=== PATIENT | male | born 1975 | race Caucasian/White ===

== ENCOUNTER → 2016-11-22 | Outpatient (CLI) | payer OTHER, BC ==
[~2016-11-22] MED LIST: PROP80TA2 PO
--- NOTE | 2016-11-22 09:03 | DIAGNOSTIC IMAGING REPORT ---
LUMBAR SPINE 5 VIEWS HISTORY: LOWER BACK PAIN COMPARISON: 12/03/2015 FINDINGS: There is no fracture. No subluxation. Minimal degenerative intervertebral disc change such entire lumbar region. No evidence for compression deformity. IMPRESSION: Minimal degenerative disc change. No acute process. Electronically signed by: Benoit Paul M.D. 11/22/2016 9:01 AM Dictated Date/Time: 11/22/2016 8:58 AM
== END | disposition home or self-care (01) ==
LOC: C.RAD1850 08:37
PROVIDERS: ATTEND Nurse Practitioner Adult Health
DX: M54.5 Low back pain (principal)

== ENCOUNTER 2017-05-26 05:16 | Emergency (ER) | payer BC, OTHER ==
[~2017-05-26] VITALS: Ht 182.9 cm; Wt 117.7 kg
[2017-05-26 05:18] VITALS: Ht 182.9 cm; Wt 117.7 kg
[2017-05-26] MEDS ORDERED: SODIUM CHLORIDE 0.9% 500ML 500 ML IV STA (05:39)
[2017-05-26] MEDS ORDERED: PROP80TA2 PO (05:55)
[2017-05-26 06:24] LABS: BASO % 0.5 %; BASO ABS # 0.04 K/uL (0-0.2); COMPLETE YES; EOS % 3.3 %; HEMATOCRIT 43.8 % (42-52); IG% 0.8 %; LYMPH % 24.2 %; LYMPH ABS # 1.85 K/uL (1.2-3.4); MEAN CELL VOLUME 83.6 fL (80-100); MEAN CORPUSCULAR HEMOGLOBIN 30.2 pg (25-34); MEAN CORPUSCULAR HGB CONC 36.1 g/dl (32-36); MEAN PLATELET VOLUME 8.7 fL (7.4-10.4); MONO % 10.8 %; NEUT % 60.4 %; PLATELET COUNT 289 K/uL (130-400); RED BLOOD COUNT 5.24 M/uL (4.7-6.1); WHITE BLOOD COUNT 7.66 K/uL (4.8-10.8)
--- NOTE | 2017-05-26 06:30 | DIAGNOSTIC IMAGING REPORT ---
CHEST ONE VIEW PORTABLE CLINICAL HISTORY: palpitations COMPARISON STUDY: No previous studies for comparison. FINDINGS: The heart is at the upper limits of normal in size. There is no failure. There is no focal pulmonary consolidation. No pleural effusions are visualized. Chronic changes involve the distal right clavicle.[ IMPRESSION: No active disease in the chest. Electronically signed by: Jhony Tavera M.D. 05/26/2017 6:29 AM Dictated Date/Time: 05/26/2017 6:28 AM
[2017-05-26 06:38] LABS: BUN/CREATININE RATIO 16.5 (10-20); CALCIUM 9.2 mg/dl (8.5-10.1); CREATININE 0.89 mg/dl (0.60-1.40); MAGNESIUM 2.2 mg/dl (1.8-2.4); POTASSIUM 4.1 mmol/L (3.5-5.1)
[2017-05-26 06:49] LABS: THYROID STIMULATING HORMONE 0.744 uIu/ml (0.300-4.500)
[2017-05-26] MEDS ORDERED: hydrOXYzine HCL 25 MG TAB PO STA (06:53)
--- NOTE | 2017-05-26 07:17 | EMERGENCY ROOM VISIT NOTE ---
History Report prepared by Sana: Ashanti James Under the Supervision of: Dr. Erica Olivera M.D. First contact with patient: 05:21 Chief Complaint: PALPITATIONS Stated Complaint: PALPITATIONS History of Present Illness The patient is a 42 year old male who presents to the Emergency Room with complaints of an episode of palpitations starting this morning. The patient states that he has been having these episodes where he gets ringing in his ears. He states that his hands and face become hot and he gets a tingling feeling in his body. He reports that he went to his PCP who gave him a Holter monitor that found at random times his atria beat faster than his ventricles and then flip. The patient reports that he was getting ready for work this morning when he had the most intense episode he has had yet. He described it like, "I just got done running a race." He states that he called to make an appointment with a urology surgeon and is waiting for them to call back. He states he was pit on Propranolol 80 mg. He states he took it for the first time last night. The patient denies shortness of breath, pain with deep breathing, a family history of blood clots, and any recent surgery. He notes that he cut back his caffeine a week ago. Source of History: patient Onset: this morning Position: other (global) Quality: other (global) Timing: other (episode) Associated Symptoms: No SOB Note: The patient complains of ringing in his ears, his hands and face becoming hot, and his body tingling. The patient denies pain with deep breathing, a family history of blood clots, and any recent surgery Review of Systems See HPI for pertinent positives & negatives. A total of 10 systems reviewed and were otherwise negative. Past Medical & Surgical Medical Problems: (1) Headache (2) Headache (3) Injury of right elbow (4) Injury of right elbow (5) Migraine (6) No known problems (7) Right elbow pain (8) Rotator cuff tear (9) Shoulder pain (10) Shoulder pain (11) Shoulder strain Family History Patient reports no known family medical history. Social History Smoking Status: Former Smoker Smokeless Tobacco Use: Yes Alcohol Use: none Drug Use: none Marital Status: Housing Status: lives with family Occupation Status: employed Current/Historical Medications Scheduled Propranolol (Inderal), 80 MG PO DAILY Allergies Coded Allergies: No Known Allergies (Unverified , unknown, 05/26/17) Physical Exam Vital Signs Date Time Temp Pulse Resp B/P (MAP) Pulse Ox O2 Delivery O2 Flow Rate FiO2 05/26/17 07:58 36.5 67 20 135/88 96 05/26/17 07:58 36.5 67 20 96 Room Air 05/26/17 05:34 67 05/26/17 05:18 36.5 75 20 145/100 96 Room Air Physical Exam Vital signs reviewed. General: Anxious-appearing, jittery, in no significant distress. HEENT: No scleral icterus, PERRLA, neck supple. Atraumatic. Cardiovascular: Regular rate and rhythm, no extra sounds. Pulmonary: Clear to auscultation bilaterally, normal work of breathing. Abdomen: Soft, nontender, nondistended, positive bowel sounds. Musculoskeletal: Atraumatic, no peripheral edema. Neurologic: Patient awake alert and oriented x 3, full strength in all 4 extremities. Cranial nerves 2 through 12 grossly intact. Skin: Warm, dry, no rash Medical Decision & Procedures ER Provider Diagnostic Interpretation: Radiology results as stated below per my review and radiologist interpretation: CHEST ONE VIEW PORTABLE CLINICAL HISTORY: palpitations COMPARISON STUDY: No previous studies for comparison. FINDINGS: The heart is at the upper limits of normal in size. There is no failure. There is no focal pulmonary consolidation. No pleural effusions are visualized. Chronic changes involve the distal right clavicle.[ IMPRESSION: No active disease in the chest. Electronically signed by: Jhony Tavera M.D. 05/26/2017 6:29 AM Dictated Date/Time: 05/26/2017 6:28 AM Laboratory Results 05/26/17 06:05 Red Blood Count 5.24, Mean Corpuscular Volume 83.6, Mean Corpuscular Hemoglobin 30.2, Mean Corpuscular Hemoglobin Concent 36.1, Mean Platelet Volume 8.7, Neutrophils (%) (Auto) 60.4, Lymphocytes (%) (Auto) 24.2, Monocytes (%) (Auto) 10.8, Eosinophils (%) (Auto) 3.3, Basophils (%) (Auto) 0.5, Neutrophils # (Auto ) 4.63, Lymphocytes # (Auto) 1.85, Monocytes # (Auto) 0.83, Eosinophils # (Auto ) 0.25, Basophils # (Auto) 0.04 05/26/17 06:05 Test 05/26/17 06:05 05/26/17 06:14 White Blood Count 7.66 K/uL (4.8-10.8) Red Blood Count 5.24 M/uL (4.7-6.1) Hemoglobin 15.8 g/dL (14.0-18.0) Hematocrit 43.8 % (42-52) Mean Corpuscular Volume 83.6 fL (80-100) Mean Corpuscular Hemoglobin 30.2 pg (25-34) Mean Corpuscular Hemoglobin Concent 36.1 g/dl (32-36) Platelet Count 289 K/uL (130-400) Mean Platelet Volume 8.7 fL (7.4-10.4) Neutrophils (%) (Auto) 60.4 % Lymphocytes (%) (Auto) 24.2 % Monocytes (%) (Auto) 10.8 % Eosinophils (%) (Auto) 3.3 % Basophils (%) (Auto) 0.5 % Neutrophils # (Auto) 4.63 K/uL (1.4-6.5) Lymphocytes # (Auto) 1.85 K/uL (1.2-3.4) Monocytes # (Auto) 0.83 K/uL (0.11-0.59) Eosinophils # (Auto) 0.25 K/uL (0-0.5) Basophils # (Auto) 0.04 K/uL (0-0.2) RDW Standard Deviation 38.0 fL (36.4-46.3) RDW Coefficient of Variation 12.6 % (11.5-14.5) Immature Granulocyte % (Auto) 0.8 % Immature Granulocyte # (Auto) 0.06 K/uL (0.00-0.02) Anion Gap 7.0 mmol/L (3-11) Est Creatinine Clear Calc Drug Dose 143.2 ml/min Estimated GFR () 122.2 Estimated GFR (Non- 105.5 BUN/Creatinine Ratio 16.5 (10-20) Calcium Level 9.2 mg/dl (8.5-10.1) Magnesium Level 2.2 mg/dl (1.8-2.4) Total Bilirubin 0.6 mg/dl (0.2-1) Direct Bilirubin 0.2 mg/dl (0-0.2) Aspartate Amino Transf (AST/SGOT) 24 U/L (15-37) Alanine Aminotransferase (ALT/SGPT) 51 U/L (12-78) Alkaline Phosphatase 75 U/L (45-117) Total Creatine Kinase 160 U/L (39-308) Creatine Kinase MB 1.6 ng/ml (0.5-3.6) Creatine Kinase MB Ratio 1.0 (0-3.0) Total Protein 7.4 gm/dl (6.4-8.2) Albumin 4.0 gm/dl (3.4-5.0) Thyroid Stimulating Hormone (TSH) 0.744 uIu/ml (0.300-4.500) Bedside Troponin I < 0.030 ng/ml (0-0.045) Laboratory results per my review. Medications Administered Medications (Trade) Dose Ordered Sig/Pebbles Route Start Time Stop Time Status Last Admin Dose Admin Sodium Chloride 500 ml @ 999 mls/hr Q31M STAT IV 05/26/17 05:39 05/26/17 06:09 DC 05/26/17 05:39 999 MLS/HR Hydroxyzine HCl (Vistaril Tab) 25 mg NOW STAT PO 05/26/17 06:53 05/26/17 06:54 DC 05/26/17 07:15 25 MG ECG Indication: palpitations Rate (beats per minute): 70 Rhythm: normal sinus Findings: no acute ischemic change, no ectopy ED Course 0536: Past medical records reviewed. The patient was evaluated in room B10. A complete history and physical examination was performed. 0539: Ordered NSS 500 ml @ 999 mls/hr IV. 0653: Ordered Vistaril Tab 25 mg PO. 0654: Upon reevaluation, the patient appeared to have improvement of his symptoms. I discussed findings with the patient. He was given 25 mg of Vistaril for anxiety and instructed to follow up with his PCP. He verbalized agreement of the treatment plan. The patient was discharged home. Medical Decision Differential diagnosis: Etiologies such as premature contractions, electrolyte abnormality, cardiac dysrhythmia, thyroid dysfunction, pulmonary embolism, infection, gastrointestinal, as well as others were entertained. This pt was evaluated and appeared to be in no distress. IV access was obtained and lab work was drawn. Pt was placed on the bulk fluids handler. EKG was performed and reveals a NSR without ectopy of ischemia. CXR is clear to my interpretation. Lab work is generally unrevealing. Pt was given vistaril 25 mg for anxiety. He was advised to continue propanolol as prescribed and f/u this week with PCP as scheduled. He will avoid caffeine. Pt will return to the ED for worsening of symptoms or any medical concerns. Impression Primary Impression: Palpitations Scribe Attestation The scribe's documentation has been prepared under my direction and personally reviewed by me in its entirety. I confirm that the note above accurately reflects all work, treatment, procedures, and medical decision making performed by me. Departure Information Dispostion Home / Self-Care Referrals Ani Reyes, C.R.N.P. (PCP) Forms HOME CARE DOCUMENTATION FORM, IMPORTANT VISIT INFORMATION, WORK / SCHOOL INSTRUCTIONS Patient Instructions My [facility] Additional Instructions Diagnosis: Palpitations Continue propanolol as prescribed. Avoid caffiene, nicotine and alcohol. Drink plenty of fluids. Follow up with your doctor this week as scheduled. Return to the ED for worsening of symptoms or any medical concerns.
[2017-05-26 07:58] VITALS: BP 135/88; PULSE 67; TEMP 36.5; O2SAT 96
== END 2017-05-26 07:15 | disposition home or self-care (01) ==
LOC: C.EDB 05:17
DX: R00.2 Palpitations (principal); F41.9 Anxiety disorder, unspecified; Z87.828 Personal history of other (healed) physical injury and trauma; Z87.891 Personal history of nicotine dependence; Z79.899 Other long term (current) drug therapy

== ENCOUNTER → 2017-10-20 | Outpatient (CLI) | payer OTHER ==
--- NOTE | 2017-10-20 16:12 | DIAGNOSTIC IMAGING REPORT ---
R SHOULDER MIN 2 VIEWS ROUTINE CLINICAL HISTORY: PAIN IN R SHOULDER COMPARISON: 05/19/2016 DISCUSSION: No acute fractures or dislocations are visualized. Degenerative changes are present within the chromic clavicular joint. There is distal clavicular spurring similar to the preceding study. There is no evidence for soft tissue swelling. IMPRESSION: 1. No change from the prior study. 2. No acute fractures 3. Degenerative changes within the AC joint Electronically signed by: Jhony Tavera M.D. 10/20/2017 4:10 PM Dictated Date/Time: 10/20/2017 4:10 PM
== END | disposition home or self-care (01) ==
LOC: C.RAD1850 15:59
PROVIDERS: ATTEND Family Medicine
DX: M25.511 Pain in right shoulder (principal)

== ENCOUNTER → 2017-11-24 | Outpatient (CLI) | payer OTHER ==
--- NOTE | 2017-11-24 11:08 | DIAGNOSTIC IMAGING REPORT ---
ABDOMEN COMPLETE (US) HISTORY: Pain. Nausea. RUQ PAIN. COMPARISON: None. FINDINGS: Pancreas: The pancreas demonstrates a normal echotexture. Liver: Mild fatty infiltration Gallbladder: No gallbladder wall thickening. No gallstones. CBD: 4 mm Kidneys: No hydronephrosis. Spleen: Normal in size. Several echogenic nodule suggesting benign angiomyolipomas. Aorta: Normal in caliber. IVC: Patent. IMPRESSION: No significant abnormality identified within the within the abdomen. Mild fatty infiltration of liver The above report was generated using voice recognition software. It may contain grammatical, syntax or spelling errors. Electronically signed by: Benoit Paul M.D. 11/24/2017 11:07 AM Dictated Date/Time: 11/24/2017 11:06 AM
== END | disposition home or self-care (01) ==
LOC: C.ULTR 10:21
PROVIDERS: ATTEND Student in an Organized Health Care Education/Training Program
DX: R10.11 Right upper quadrant pain (principal)

== ENCOUNTER 2024-11-12 17:00 | Observation (INO) ==
--- NOTE | 2024-11-12 17:20 | Emergency Department Note ---
Impression & Plan Acute hypoxic respiratory failure, Influenza A, Hypoxia ED Provider Note NAME: DILIP COLLIER AGE: 49 SEX: M : 1975 ARRIVES VIA: Walk-In INFORMANT: Patient ED PROVIDER(S): Shawn Pruitt DO CHIEF COMPLAINT: Cough, congestion, shortness of breath HPI: Patient is a 49-year-old male who presents to the ER with history of anxiety and hypertension for upper respiratory symptoms referred in by the PCP. Patient notes that symptoms initially started on Monday with cough, congestion and shortness of breath. They have been worsening. They went to the PCPs office and they referred him in here as his blood pressure was elevated. Patient denies any belly pain, nausea, vomiting or diarrhea. No dysuria, urgency or frequency. No chest pain. No headache or change or loss of vision. No history of asthma or COPD. He has not taken his blood pressure medicines today as he normally takes it at night. ADDITIONAL HISTORY OBTAINED: Significant other present at bedside notes that they were sent over for evaluation due to the shortness of breath and that multiple coworkers are sick at work with same symptoms. Chronic Medical/Social Conditions Affecting Care: Per HPI PAST MEDICAL HISTORY:See Below PAST SURGICAL HISTORY:See Below FAMILY HISTORY:See Below SOCIAL HISTORY:See Below HOME MEDICATIONS:See Below ALLERGIES:See Below VITALS:See Below PHYSICAL EXAMINATION: GENERAL: Sitting up in bed, alert, well appearing, well nourished, no distress, non-toxic EYE EXAM: normal conjunctiva. PERRL and EOM's grossly intact. OROPHARYNX: no exudate, no erythema, lips, buccal mucosa, and tongue normal and mucous membranes are moist NECK: supple, no nuchal rigidity, no adenopathy, non-tender LUNGS: Wheezing bilaterally. Normal chest wall mechanics HEART: no murmurs, S1 normal and S2 normal ABDOMEN: abdomen soft, non-tender, normo-active bowel sounds, no masses, no rebound or guarding. UPPER EXTREMITIES: upper extremities are grossly normal. LOWER EXTREMITIES: No pitting edema. Calves are equal bilateral NEURO EXAM: Normal sensorium, cranial nerves II-XII grossly intact, normal speech, no gross weakness of arms, no gross weakness of legs. MEDICAL DECISION MAKING: Patient is a 49-year-old male who presents ER for the above-stated complaint. IV was established and blood work was obtained. He is found to be hypoxic at 88% on room air was placed on 2 L nasal cannula. Additional history obtained from [facility] who called and noted the patient has a history of anxiety and hypertension and blood pressure was 180 and his pulse ox was 92% sent him over for the shortness of breath. Labs show no significant leukocytosis or anemia. BMP along with LFTs bilirubin and lipase is unremarkable. Troponin was negative. Influenza testing was positive. Chest x-ray was clean. He was given neb treatment steroids and remained on 2 L nasal cannula throughout his stay in the ER. I discussed the case with Dr. Nettie Chen for further evaluation management treatment. Consults/Care Managements Discussions: Per MDM Triage Nursing notes reviewed. Limited review of prior medical records performed Vital Signs: reviewed and remarkable for HTN Differential diagnosis: Differential diagnoses includes but is not limited to pneumonia, bronchitis, COPD/Asthma exacerbation, pneumothorax, pulmonary embolism, congestive heart failure, acute coronary syndrome ER treatment provided: See below Diagnostics interpreted by me include EKG and cardiac monitoring as listed below: -Cardiac Monitoring: An order was placed for continuous cardiac monitoring. The monitor shows a rate of 75 with sinus rhythm. -ECG: Sinus rhythm rate 65 Normal axis No PVCs QTc 420 -Laboratory studies:Interpreted by me as stated above in MDM and shown below. Imaging studies: Xrays: As interpreted by me: Portable AP upright 1 view of the chest shows no focal infiltrate CTs show: none Procedures:none Critical Care: I have personally spent 44 minutes of critical care time in the direct management of this patient. This includes bedside care, interpretation of diagnostic studies, and testing, discussion with consultants, patient, and family members, and other required patient management activities. This 44 minutes is in excess of all separately billable procedures. Past Med/Surg History Problem List (Updated 11/12/24 @ 19:54 by Shawn Pruitt DO) Acute hypoxic respiratory failure (Acute) Hypoxia (Acute) Influenza A (Acute) Medical History (Updated 11/12/24 @ 19:54 by Shawn Pruitt DO) Anxiety Hypertension Lumbar radiculopathy Social History Smoking Status: Never smoker Preferred Language: Malay Feels Safe at Home: Yes Allergies Allergies Allergy/AdvReac Type Severity Reaction Status Date / Time No Known Allergies AdvReac Unknown unknown Verified 11/12/24 18:44 Home Meds Home Medications Medication Instructions Recorded Confirmed albuterol sulfate 90 mcg/actuation 2 puff inhalation Q6H PRN 11/12/24 11/12/24 aerosol inhaler Shortness Of Breath Or Wheezing prednisone 20 mg tablet 40 mg PO DAILY 11/12/24 11/12/24 propranolol 80 mg capsule,24 80 mg PO PM 11/12/24 11/12/24 hr,extended release Results & Data (ED) Vital Signs Vital Signs - 24 hr 11/12/24 17:07 11/12/24 17:31 11/12/24 17:45 Temperature 36.6 C Temperature Source Temporal Artery Scan Pulse Rate 74 Pulse Rate [Right Finger] 61 Pulse Rhythm [Right Finger] Regular Pulse Strength [Right Finger] Normal Respiratory Rate 20 20 Respiratory Effort / Characteristics Non-Labored Spontaneous Non-Labored Spontaneous Respiratory Depth Normal Normal Respiratory Pattern Regular Regular Blood Pressure 221/115 H Blood Pressure [Left Arm] 148/91 H Blood Pressure Mean 150 Blood Pressure Mean [Left Arm] 110 Blood Pressure Position [Left Arm] Sitting Pulse Oximetry 91 98 89 L Oxygen Delivery Method Room Air Room Air Room Air Oxygen Flow Rate Sepsis Recent Fever Within 48 Hours No Sepsis New/Unexplained Change in Mental Status N/A Sepsis Action Taken by Nursing No Action Required 11/12/24 17:47 11/12/24 18:00 11/12/24 18:48 Temperature Temperature Source Pulse Rate 60 Pulse Rate [Right Finger] 79 Pulse Rhythm [Right Finger] Regular Pulse Strength [Right Finger] Normal Respiratory Rate 22 Respiratory Effort / Characteristics Non-Labored Spontaneous Respiratory Depth Normal Respiratory Pattern Blood Pressure Blood Pressure [Left Arm] 182/85 H Blood Pressure Mean Blood Pressure Mean [Left Arm] 117 Blood Pressure Position [Left Arm] Sitting Pulse Oximetry 94 95 Oxygen Delivery Method Nasal Cannula Nasal Cannula Oxygen Flow Rate 2 2 Sepsis Recent Fever Within 48 Hours Sepsis New/Unexplained Change in Mental Status Sepsis Action Taken by Nursing 11/12/24 19:00 Temperature Temperature Source Pulse Rate Pulse Rate [Right Finger] 57 L Pulse Rhythm [Right Finger] Pulse Strength [Right Finger] Respiratory Rate 18 Respiratory Effort / Characteristics Non-Labored Spontaneous Respiratory Depth Normal Respiratory Pattern Regular Blood Pressure Blood Pressure [Left Arm] 172/99 H Blood Pressure Mean Blood Pressure Mean [Left Arm] 123 Blood Pressure Position [Left Arm] Pulse Oximetry 95 Oxygen Delivery Method Nasal Cannula Oxygen Flow Rate 2 Sepsis Recent Fever Within 48 Hours Sepsis New/Unexplained Change in Mental Status Sepsis Action Taken by Nursing Laboratory Data 11/12/24 17:18 11/12/24 17:18 Lab Results 11/12/24 Range/Units 17:18 WBC 10.48 (4.8-10.8) K/ul RBC 5.84 (4.70-6.10) M/uL Hgb 16.6 (14.0-18.0) g/dl Hct 48.8 (42.0-52.0) % MCV 83.6 (80.0-100.0) fL MCH 28.4 (25.0-34.0) pg MCHC 34.0 (32.0-36.0) g/dL RDW Std Deviation 37.4 (36.4-46.3) fL RDW Coeff of Tess 12.5 (11.5-14.5) % Plt Count 338 (130-400) K/uL MPV 8.2 L (9.4-12.4) fL Immature Gran % (Auto) 1.2 % Neut % (Auto) 75.3 % Lymph % (Auto) 13.9 % [place] % (Auto) 8.8 % Eos % (Auto) 0.4 % Baso % (Auto) 0.4 % Neut # (Auto) 7.89 H (1.40-6.50) K/uL Lymph # (Auto) 1.46 (1.20-3.40) K/uL [place] # (Auto) 0.92 H (0.11-0.59) K/uL Eos # (Auto) 0.04 (0.00-0.50) K/uL Baso # (Auto) 0.04 (0.00-0.20) K/uL Immature Gran # (Auto) 0.13 (0.01-0.20) K/uL Sodium 137 (136-145) mmol/L Potassium 4.5 (3.5-5.1) mmol/L Chloride 99 (98-107) mmol/L Carbon Dioxide 33 H (21-32) mmol/L Anion Gap 5 (3-11) BUN 14 (6-23) mg/dl Creatinine 0.86 (0.6-1.4) mg/dl Est Cr Clr Drug Dosing 131.2 ml/min eGFR 106.14 BUN/Creatinine Ratio 16.3 (10-20) Glucose 108 H (70-99(Fasting)) mg/dl Calcium 9.6 (8.6-10.3) mg/dl Total Bilirubin 0.7 (0.2-1.0) mg/dl AST 38 (13-39) U/L ALT 59 H (7-52) U/L Alkaline Phosphatase 80 (34-104) U/L Troponin I High Sens 4.1 (0-20) pg/ml Total Protein 8.2 (6.0-8.3) gm/dl Albumin 5.0 (3.4-5.0) gm/dl Globulin 3.2 (2.5-4.0) gm/dl Albumin/Globulin Ratio 1.6 (0.9-2) Lipase 5 L (11-82) U/L Nasal Influ A H1 2008 PCR DETECTED A (NotDetected) Adenovirus (PCR) Not Detected (NotDetected) B. pertussis DNA (PCR) Not Detected (NotDetected) B.parapertussis DNA PCR Not Detected (NotDetected) C. pneumoniae DNA (PCR) Not Detected (NotDetected) Coronavirus OC43 (PCR) Not Detected (NotDetected) Coronavirus HKU1 (PCR) Not Detected (NotDetected) Coronavirus 229E (PCR) Not Detected (NotDetected) SARS-CoV-2 (PCR) Not Detected (NotDetected) Coronavirus NL63 (PCR) Not Detected (NotDetected) Human Metapneumovir PCR Not Detected (NotDetected) Influenza Type B (PCR) Not Detected (NotDetected) M. pneumoniae (PCR) Not Detected (NotDetected) Parainfluenza 1 (PCR) Not Detected (NotDetected) Parainfluenza 2 (PCR) Not Detected (NotDetected) Parainfluenza 3 (PCR) Not Detected (NotDetected) Parainfluenza 4 (PCR) Not Detected (NotDetected) RSV (PCR) Not Detected (NotDetected) Entero/Rhino (PCR) Not Detected (NotDetected) Administered Medications Discontinued Medications Albuterol (Albut/Ipratrop 3mg/0.5mg Neb 3 Ml Vial) 6 ml NEB NOW STA; Protocol Stop: 11/12/24 17:18 Last Admin: 11/12/24 17:26 Dose: 6 ml Documented By: [facility] Sodium Chloride (Nss) 1,000 mls @ 999 mls/hr IV .Q1H1M ONE Stop: 11/12/24 18:17 Last Infusion: 11/12/24 18:53 Dose: Infused Documented By: [facility] Admin: 11/12/24 17:27 Dose: 999 mls/hr Documented By: [facility] Methylprednisolone (Methylprednisolone 125 Mg/2 Ml Vial) 40 mg IV NOW STA Stop: 11/12/24 18:47 Last Admin: 11/12/24 19:10 Dose: 40 mg Documented By: [facility] Imaging Data Radiologist's Impression: Chest X-Ray 11/12/24 17:10 INDICATION: Chest pain. TECHNIQUE: Frontal radiograph of the chest. COMPARISON: Radiograph from 11/08/2024. FINDINGS: Cardiomegaly. Mild pulmonary vascular congestion. No infiltrate, pleural effusion or pneumothorax. No acute osseous abnormality evident. IMPRESSION: Mild pulmonary vascular congestion. Electronically signed by Mayito Larson 11-12-2024 5:45 PM Discharge Plan Visit Data Chief Complaint: Shortness of Breath/Dyspnea Stated Complaint: SOB ED Provider: Shawn Pruitt Discharge Problem: Acute hypoxic respiratory failure, Influenza A, Hypoxia Forms Stand Alone Forms: My [facility] Prescriptions Prescriptions: No Action prednisone 20 mg tablet 40 mg PO DAILY Rx Instructions: STARTED 11/08/24 FOR 5 DAYS. propranolol 80 mg capsule,extended release 24hr 80 mg PO PM albuterol sulfate 90 mcg/actuation HFA aerosol inhaler 2 puff INHALATION Q6H PRN (Reason: Shortness Of Breath Or Wheezing) Referrals Referrals: Ani Reyes CRNP [Outside Practitioners] -
[2024-11-12] MEDS: ALBUT/IPRATROP 3MG/0.5MG NEB 3 ML VIAL NEB STA (17:26)
[2024-11-12] MEDS: SODIUM CHLORIDE 0.9% 1,000 ML IV ONE (17:27)
[2024-11-12 17:36] LABS: Basophils # (auto) 0.04 K/uL (0.00-0.20); Basophils % (auto) 0.4 %; Eosinophils # (auto) 0.04 K/uL (0.00-0.50); Eosinophils % (auto) 0.4 %; Hematocrit (blood only) 48.8 % (42.0-52.0); Hemoglobin 16.6 g/dl (14.0-18.0); Immature Granulocytes # (auto) 0.13 K/uL (0.01-0.20); Immature Granulocytes % (auto) 1.2 %; Lymphocytes # (auto) 1.46 K/uL (1.20-3.40); Lymphocytes % (auto) 13.9 %; Mean Corpuscular Hemoglobin 28.4 pg (25.0-34.0); Mean Corpuscular Volume 83.6 fL (80.0-100.0); Mean Platelet Volume 8.2 fL (9.4-12.4); Monocytes # (auto) 0.92 K/uL (0.11-0.59); Monocytes % (auto) 8.8 %; Neutrophils # (auto) 7.89 K/uL (1.40-6.50); Neutrophils % (auto) 75.3 %; Platelet Count 338 K/uL (130-400); RDW Coefficient of Variation 12.5 % (11.5-14.5); RDW Standard Deviation 37.4 fL (36.4-46.3); Red Blood Count 5.84 M/uL (4.70-6.10); White Blood Count 10.48 K/ul (4.8-10.8)
--- NOTE | 2024-11-12 17:46 | XRay Report ---
INDICATION: Chest pain. TECHNIQUE: Frontal radiograph of the chest. COMPARISON: Radiograph from 11/08/2024. FINDINGS: Cardiomegaly. Mild pulmonary vascular congestion. No infiltrate, pleural effusion or pneumothorax. No acute osseous abnormality evident. IMPRESSION: Mild pulmonary vascular congestion. Electronically signed by Mayito Larson 11-12-2024 5:45 PM
[2024-11-12 17:52] LABS: Albumin Globulin Ratio 1.6 (0.9-2); BUN Creatinine Ratio 16.3 (10-20); Bilirubin,Total 0.7 mg/dl (0.2-1.0); Calcium 9.6 mg/dl (8.6-10.3); Creatinine Clr Calc Pharmacy 131.2 ml/min; Globulin 3.2 gm/dl (2.5-4.0); Potassium 4.5 mmol/L (3.5-5.1); Total Protein 8.2 gm/dl (6.0-8.3)
[2024-11-12 17:59] LABS: Troponin I High Sensitivity 4.1 pg/ml (0-20)
[2024-11-12 18:24] LABS: Adenovirus PCR Not Detected (NotDetected); Bordetella parapertussis PCR Not Detected (NotDetected); Bordetella pertussis PCR Not Detected (NotDetected); Chlamydia pneumoniae PCR Not Detected (NotDetected); Coronavirus 229E PCR Not Detected (NotDetected); Coronavirus CoV-2 (COVID19)PCR Not Detected (NotDetected); Coronavirus HKU1 PCR Not Detected (NotDetected); Coronavirus NL63 PCR Not Detected (NotDetected); Coronavirus OC43PCR Not Detected (NotDetected); Human Metapneumovirus PCR Not Detected (NotDetected); Influenza A (H1 2009) PCR DETECTED (NotDetected); Influenza B PCR Not Detected (NotDetected); Mycoplasma pneumoniae PCR Not Detected (NotDetected); Parainfluenza Virus 1 PCR Not Detected (NotDetected); Parainfluenza Virus 2 PCR Not Detected (NotDetected); Parainfluenza Virus 3 PCR Not Detected (NotDetected); Parainfluenza Virus 4 PCR Not Detected (NotDetected); Respiratory Syncytial VirusPCR Not Detected (NotDetected); Rhinovirus/Enterovirus PCR Not Detected (NotDetected)
[2024-11-12] MEDS: methylPREDNISolone 125 MG/2 ML VIAL IV STA (19:10)
--- NOTE | 2024-11-12 19:21 | History & Physical Report ---
Date of Service November 12, 2024 Assessment & Plan (1) Influenza A: (2) Hypoxia: (3) Hypertension: Plan 49yo male with history of HTN presenting with several days of fever, cough, congestion and weakness. Found to have Influenza A infection. Hypoxic in the ER at 89% on room air now improved with 2L NC to 95%. No respiratory distress. No sepsis. No underlying lung disease. #Influenza A infection - patient with acute hypoxic respiratory failure requiring supplemental O2 secondary to influenza A infection. Symptoms ongoing for several days. Patient did receive his flu shot this year. -Observation to medical -Maintain isolation precautions -Mucinex BID -Tylenol PRN -Continue supplemental O2 as needed -Albuterol nebs q 6 hours -Solumedrol 40mg IV BID #Hypoxia - secondary to influenza infection -Supplemental O2 -Albuterol and Solumedrol #Hypertension - elevated BP in the ER. Patient has not yet taken his medication -Propranolol 80mg po qHS -Monitor F/E/N - Saline lock. Electrolytes WNL. Regular diet as tolerated PPx - low risk for DVT, encourage ambulation Code - Full Dispo - Observation to medical History of Present Illness Chief Complaint: influenza infection with hypoxia Primary Care Provider: NO PCP Praneeth Jimenez is a pleasant 49yo male with history of HTN presenting with influenza infection. Patient's symptoms began 11/08/24 with cough, congestion and fever. He was seen by his PCP in [facility] and was diagnosed with an acute URI. He was given a Prednisone burst and Albuterol inhaler. He reports having fevers through the weekend. Over the last several days he has developed worsening chest congestion, SOB and DORANTES. Patient's reports he was notably out of breath after walking to the shed to get a cooler when the power was out. She also notes that he has audible wheezing and rhonchi when he sleeps. Patient reports some difficulty laying flat due to SOB as well. Otherwise, he has been afebrile for the last 48 hours. He denies chest pain, abdominal pain, nausea, vomiting or diarrhea. He has had poor appetite and decreased PO intake In the ER patient afebrile, elevated blood pressure, mild hypoxia at 89% on room air with improvement with supplemental O2 - now 95% on 2L NC ER Course: Solumedrol 40mg IV NSS x 1L Albuterol 6mL neb Propranolol 80mg ordered Allergies Allergy/AdvReac Type Severity Reaction Status Date / Time No Known Allergies AdvReac Unknown unknown Verified 11/12/24 18:44 Home Medications Medication Instructions Recorded Confirmed Type albuterol sulfate 90 mcg/actuation 2 puff inhalation Q6H PRN 11/12/24 11/12/24 History aerosol inhaler Shortness Of Breath Or Wheezing prednisone 20 mg tablet 40 mg PO DAILY 11/12/24 11/12/24 History propranolol 80 mg capsule,24 80 mg PO PM 11/12/24 11/12/24 History hr,extended release Past Med/Surg History Problem List (Updated 11/12/24 @ 19:49 by Marlene Chen DO) Hypoxia Influenza A Medical History (Updated 11/12/24 @ 19:49 by Marlene Chen DO) Anxiety Hypertension Lumbar radiculopathy Social History Smoking Status: Never smoker Preferred Language: Citizen Of [place] Feels Safe at Home: Yes Review of Systems Review of Systems: All systems reviewed & are unremarkable except as noted in HPI & below Physical Exam Physical Exam: General: patient resting comfortably, NAD, non-toxic in appearance, AA&O x 4 Skin: warm, dry, intact, no rashes or lesions HEENT: NC/AT, PERRL, EOMI, anicteric sclera, conjunctiva without injection, external ear normal to inspection and nontender, nares patent, moist mucus membranes, dentition intact, no oropharyngeal lesions, neck supple, trachea midline, no LAD, no thyromegaly, no JVD Heart: +S1/S2, regular, no m/r/g Lungs: equal air entry bilaterally, coarse rhonchi bilaterally with diffuse end-expiratory wheezing Abd: +BS, soft, NT/ND, no masses/organomegaly/ascites Ext: warm, 2+ pulses in UE/LE bilaterally, no clubbing/cyanosis or edema Neuro: nonfocal, patient AA&O x 4, speech intact, no facial droop, moving all extremities on command with equal strength 5/5 Results & Data Results & Data Vital Signs (Past 12 Hours) Vital Signs Temp Pulse Pulse Resp BP BP Pulse Ox 11/12/24 19:00 57 L 18 172/99 H 95 11/12/24 18:48 60 11/12/24 18:00 79 22 182/85 H 95 11/12/24 17:47 94 03/18/25 17:45 89 L 11/12/24 17:31 61 20 148/91 H 98 11/12/24 17:07 36.6 C 74 20 221/115 H 91 O2 Del Method O2 Flow Rate 11/12/24 19:00 Nasal Cannula 2 11/12/24 18:48 11/12/24 18:00 Nasal Cannula 2 11/12/24 17:47 Nasal Cannula 2 11/12/24 17:45 Room Air 11/12/24 17:31 Room Air 11/12/24 17:07 Room Air Laboratory Results Laboratory Results WBC 10.48 K/ul (4.8-10.8) 11/12/24 17:18 RBC 5.84 M/uL (4.70-6.10) 11/12/24 17:18 Hgb 16.6 g/dl (14.0-18.0) 11/12/24 17:18 Hct 48.8 % (42.0-52.0) 11/12/24 17:18 MCV 83.6 fL (80.0-100.0) 11/12/24 17:18 MCH 28.4 pg (25.0-34.0) 11/12/24 17:18 MCHC 34.0 g/dL (32.0-36.0) 11/12/24 17:18 RDW Std Deviation 37.4 fL (36.4-46.3) 11/12/24 17:18 RDW Coeff of Tess 12.5 % (11.5-14.5) 11/12/24 17:18 Plt Count 338 K/uL (130-400) 11/12/24 17:18 MPV 8.2 fL (9.4-12.4) L 11/12/24 17:18 Immature Gran % (Auto) 1.2 % 11/12/24 17:18 Neut % (Auto) 75.3 % 11/12/24 17:18 Lymph % (Auto) 13.9 % 11/12/24 17:18 Carroll % (Auto) 8.8 % 11/12/24 17:18 Eos % (Auto) 0.4 % 11/12/24 17:18 Baso % (Auto) 0.4 % 11/12/24 17:18 Neut # (Auto) 7.89 K/uL (1.40-6.50) H 11/12/24 17:18 Lymph # (Auto) 1.46 K/uL (1.20-3.40) 11/12/24 17:18 Carroll # (Auto) 0.92 K/uL (0.11-0.59) H 11/12/24 17:18 Eos # (Auto) 0.04 K/uL (0.00-0.50) 11/12/24 17:18 Baso # (Auto) 0.04 K/uL (0.00-0.20) 11/12/24 17:18 Immature Gran # (Auto) 0.13 K/uL (0.01-0.20) 11/12/24 17:18 Sodium 137 mmol/L (136-145) 11/12/24 17:18 Potassium 4.5 mmol/L (3.5-5.1) 11/12/24 17:18 Chloride 99 mmol/L (98-107) 11/12/24 17:18 Carbon Dioxide 33 mmol/L (21-32) H 11/12/24 17:18 Anion Gap 5 (3-11) 11/12/24 17:18 BUN 14 mg/dl (6-23) 11/12/24 17:18 Creatinine 0.86 mg/dl (0.6-1.4) 11/12/24 17:18 Est Cr Clr Drug Dosing 131.2 ml/min 11/12/24 17:18 eGFR 106.14 11/12/24 17:18 BUN/Creatinine Ratio 16.3 (10-20) 11/12/24 17:18 Glucose 108 mg/dl (70-99(Fasting)) H 11/12/24 17:18 Calcium 9.6 mg/dl (8.6-10.3) 11/12/24 17:18 Total Bilirubin 0.7 mg/dl (0.2-1.0) 11/12/24 17:18 AST 38 U/L (13-39) 11/12/24 17:18 ALT 59 U/L (7-52) H 11/12/24 17:18 Alkaline Phosphatase 80 U/L (34-104) 11/12/24 17:18 Troponin I High Sens 4.1 pg/ml (0-20) 11/12/24 17:18 Total Protein 8.2 gm/dl (6.0-8.3) 11/12/24 17:18 Albumin 5.0 gm/dl (3.4-5.0) 11/12/24 17:18 Globulin 3.2 gm/dl (2.5-4.0) 11/12/24 17:18 Albumin/Globulin Ratio 1.6 (0.9-2) 11/12/24 17:18 Lipase 5 U/L (11-82) L 11/12/24 17:18 Nasal Influ A H1 2009 PCR DETECTED (NotDetected) A 11/12/24 17:18 Adenovirus (PCR) Not Detected (NotDetected) 11/12/24 17:18 B. pertussis DNA (PCR) Not Detected (NotDetected) 11/12/24 17:18 B.parapertussis DNA PCR Not Detected (NotDetected) 11/12/24 17:18 C. pneumoniae DNA (PCR) Not Detected (NotDetected) 11/12/24 17:18 Coronavirus OC43 (PCR) Not Detected (NotDetected) 11/12/24 17:18 Coronavirus HKU1 (PCR) Not Detected (NotDetected) 11/12/24 17:18 Coronavirus 229E (PCR) Not Detected (NotDetected) 11/12/24 17:18 SARS-CoV-2 (PCR) Not Detected (NotDetected) 11/12/24 17:18 Coronavirus NL63 (PCR) Not Detected (NotDetected) 11/12/24 17:18 Human Metapneumovir PCR Not Detected (NotDetected) 11/12/24 17:18 Influenza Type B (PCR) Not Detected (NotDetected) 11/12/24 17:18 M. pneumoniae (PCR) Not Detected (NotDetected) 11/12/24 17:18 Parainfluenza 1 (PCR) Not Detected (NotDetected) 11/12/24 17:18 Parainfluenza 2 (PCR) Not Detected (NotDetected) 11/12/24 17:18 Parainfluenza 3 (PCR) Not Detected (NotDetected) 11/12/24 17:18 Parainfluenza 4 (PCR) Not Detected (NotDetected) 11/12/24 17:18 RSV (PCR) Not Detected (NotDetected) 11/12/24 17:18 Entero/Rhino (PCR) Not Detected (NotDetected) 11/12/24 17:18 Impressions Chest X-Ray 11/12/24 17:10 INDICATION: Chest pain. TECHNIQUE: Frontal radiograph of the chest. COMPARISON: Radiograph from 11/08/2024. FINDINGS: Cardiomegaly. Mild pulmonary vascular congestion. No infiltrate, pleural effusion or pneumothorax. No acute osseous abnormality evident. IMPRESSION: Mild pulmonary vascular congestion. Electronically signed by Mayito Larson 11-12-2024 5:45 PM PG Care Time/CCT Total # of Minutes Spent Total Time Spent with Patient: Total time spent is greater than 50% in coordination of care (as documented) at patient's floor/unit and/or counseling patient: Coding Level of Care Code 96150 INT INP/OBS CARE 3/75MIN Diagnoses Influenza A J10.1 Hypoxia R09.02 Hypertension I10
[2024-11-12] MEDS: PROPRANOLOL HCL 80 MG TAB PO STA (20:55)
[2024-11-12] MEDS ORDERED: ONDANSETRON INJ 2 MG/ML 2 ML VIAL IV PRN (22:00)
[2024-11-12] MEDS: hydrALAZINE 10 MG TAB PO PRN (23:01)
[2024-11-12] MEDS: guaiFENesin 600 MG TABCR PO SCH (23:02)
[2024-11-12] MEDS: PROPRANOLOL HCL LA 80 MG CAPCR PO SCH (23:07)
[2024-11-12] MEDS: ALBUTEROL 0.083% NEBU SOLN 3 ML VIAL ONE (23:51)
[2024-11-12] MEDS: ALBUTEROL 0.083% NEBU SOLN 3 ML VIAL NEB SCH (23:51)
--- OUTSIDE RECORDS SUMMARY | 2024-11-13 04:18 | External Medical Summary | Continuity of Care Document ---
Author Name Unknown Organization [address] Address [address] [place] [phone] Support Name Relationship Address Phone JUMA MAXWELL unrelated friend Unknown Unavailab le SCHLEIDEN, JUMA unrelated friend Unknown Unavailab le SCHLEIDEN, JUMA spouse Unknown Unavailable Encounter [facility] [id number] Date(s): 11/08/24 - 11/08/[address] [facility] [address] [facility], [facility] [address] [place] [address] [place] [phone] Encounter Diagnosis Acute URI(Discharge Diagnosis) - 11/08/24 Wheezing(Discharge Diagnosis) - 11/08/24 Discharge Disposition: Home or Self Care Attending Physician: FRANCISCO Munoz Katy Marie Encounter Type: Clinic Allergies, Adverse Reactions, Alerts No Known Allergies Assessment and Plan Extracted from: Title:Office Visit Note - APSO Author:RYLAND Munoz NP, Katy Marie Date:11/08/24 1.Acute URI Problem isAcute Goal:resolution Data:_triplex Plan: Albuterol in office inhaler and prednisone burst sent topharmacy strict ER and return precautions encouraged monitoring home O2 Wheezing improved post albuterol inhaler on second assessment. Patient verbalizes understanding and agrees with moses well asreturn precautions. Immunizations Given and Recorded Vaccine Date Status Refusal Reason influenza virus vaccine, inactivated 1 06/18/24 Gi john influenza virus vaccine, inactivated 2 06/16/23 Gi john influenza virus vaccine, inactivated 08/25/22 Give n influenza virus vaccine, inactivated 05/13/20 Give n influenza virus vaccine, inactivated 06/24/19 Give n influenza virus vaccine, inactivated 06/06/18 Give n influenza virus vaccine, inactivated 06/06/16 Give n tetanus/diphtheria/pertuss, acel (Tdap) 08/24/21 G iven SARS-CoV-2 (COVID-19) mRNA-1273 vaccine 3 02/19/21 Recorded 1Result Comment: Atif burgess CMOA 2Result Comment: Dr Nuno 3Result Comment: 2021-08-24: Historical information-source unspecified Medications Albuterol (Eqv-ProAir HFA) 90 mcg/inh inhalation aerosol Start: 11/08/24 2:50:00 PM EDT, 2 inh, inhaled, q6h, Disp# 6.7 g, Pharmacy: [id number] Start Date: 11/08/24 Status: Ordered Quantity: 6.7 Unit: g Repeat number: 1 Indication: Acute upper respiratory infection, unspecified predniSONE 20 mg oral tablet Start: 11/08/24 2:51:00 PM EDT, 2 tab, PO, Daily, Disp# 10 tab, Pharmacy: [id number] Start Date: 11/08/24 Stop Date: 11/13/24 Status: Ordered Quantity: 10.0 Unit: tab Repeat number: 1 Indication: Acute upper respiratory infection, unspecified propranolol 80 mg oral capsule, extended release Start: 06/27/24 11:45:00 AM EDT, See Instructions, Disp# 90 cap, Refills: 3, TAKE 1 CAPSULE BY MOUTH ONCE DAILY, Pharmacy: [facility] Start Date: 06/27/24 Status: Ordered Quantity: 90.0 Unit: cap Repeat number: 4 Mental Status 11/08/24 Barriers to Learning one year None evide nt Mandatory Health Literacy Documentation Yes Health Literacy Communication Barriers N ever Primary Language Eritrean Problem List Condition Confirmation Course Effective Dates Status Health St atus Informant Anxiety Confirmed Active HTN, goal below 130/80 Confirmed Active Obesity Confirmed Active Hepatic steatosis Confirmed Active Tobacco user Confirmed Active Diagnosis Diagnosis Type Effective Dates Health Status Clini vivi Service Informant Acute URI Discharge Diagnosis 11/08/24 Non-Specified Wheezing Discharge Diagnosis 11/08/24 Non-Specified Procedures Procedure Date Related Diagnosis Body Site Status Colonoscopy 1, 2, 3 09/29/23 Compl eted Ultrasound Abdomen 4 02/24/22 Comp leted Shoulder X-ray 5 10/20/17 Complete d None Completed 1- One 4 mm polyp in the sigmoid colon, removed with a cold snare. Resected and retrieved. - One 3 mm polyp at the splenic flexure, removed with a cold snare. Resected and retrieved. - One 2 mm polyp at 50 cm proximal to the anus, removed with a cold biopsy forceps. Resected and retrieved. - Two 3 mm polyps in the rectum, removed with a cold snare. Resected and retrieved. - The examination was otherwise normal on direct and retroflexion views. 2A) Sigmoid colon Hyperplastic polyp. B) Splenic flexure of colon Tubular adenoma. C) 50cm Early hyperplastic polyp. D) Rectum Tubular adenomas. 3Repeat colonoscopy in 3 years. 4Impression: Hepatic steatosis. Mild hepatomegaly. No hepatic lesions identified. No gallstones or biliary ductal dilatation. Trace sludge within the gallbladder. 51. No change from the prior study. 2. No acute fractures. 3. Degenerative changes within the AC joint. Vital Signs Most recent to oldest [Reference Range]: 1 Patient Weight 130.7 kg (11/08/24 2:22 PM) Temperature [36.5-37.9 DegC] 37.3 DegC (11/08/24 2:22 PM) Blood Pressure 150/80mmHg (11/08/24 2:22 PM) Cuff Pulse Pressure 70 mmHg (11/08/24 2:22 PM) Social History Social History Type Response Tobacco Oral Smoking Status Never smoked cigaret alla Sex Male Sex Representation Male (finding) FCM Outpt Note * FRANICSCO Munoz, Halima Richards: PERFORM Event Display: FCM Outpt Note Authored Date: [id number] Assessment/Plan 1.Acute URI Problem isAcute Goal:resolution Data:_triplex Plan: Albuterol in office inhaler and prednisone burst sent topharmacy strict ER and return precautions encouraged monitoring home O2 Wheezing improved post albuterol inhaler on second assessment. Patient verbalizes understanding and agrees with moses well asreturn precautions. Attestation I attest that I have spent32 minutes in care and coordination of this patient. This is inclusive of: previsit: chart review and preparation |[id number]: obtaining HPI, PE, discussing Assessment and Plan, and other pertinent discussions/decisionsr/t care | postvisit: coordination of care, orders, and documentation/paperwork The abovetimedoes not include any procedure time. Chief Complaint pt started getting cough chest congestion sob, headaches and body aches yesterday History of Present Illness Started yesterday/last night feeling feverish, congestion, cough, body aches, chills, chest congestion exertion makes him SOB Feels that he is coughing up brown fluid no CP, lightheaded or dizziness does not smoke Review of Systems A total of 10 systems were reviewed. Pertinent positive and negatives addressed in HPI, all other findings are negative. Physical Exam Vitals & Measurements T:37.3C BP:150/80 SpO2:94% WT:130.700kg(Dosing) WT:130.7kg PHQ2 Data(Data Documented on:11/08/2024 14:20) Emotional health assessment NEGATIVE Constitutional: alert and conversive, non-toxic, ill-appearing HEENT: pharyngeal erythema without tonsillar exudate, mucosal edema in nares, ear canals erythematous, clear rhinorrhea, TM vazquez without bulging or erythema,withcervical lymphadenopathy, EOMI, sclera non- icteric,withoutsinus tenderness Neuro: AOx4, CN appear grossly intact without formal testing Resp: unlabored breathing, scatteredwheezingLS bilaterally Cardio: RRR without murmur or gallop, no cyanosis or edema Problem List/Past Medical History Ongoing Anxiety Hepatic steatosis HTN, goal below 130/80 Obesity Tobacco user Resolved Addiction Gluteal tendinitis, left hip Influenza Lower back pain Lumbar strain Partial tear of right rotator cuff Radicular leg pain Strain of fascia of lower back Tobacco abuse Procedure/Surgical History Colonoscopy| Service Date: 09/29/2023Ultrasound Abdomen| Service Date: 02/24/2022[place] X-ray| Service Date: 10/20/2017None Medications albuterol(albuterol 0.63 mg/3 mL (0.021%) inhalation solution), 1 unit, inhaled, ONCE albuterol(Albuterol (Eqv-ProAir HFA) 90 mcg/inh inhalation aerosol), 2 inh, inhaled, q6h predniSONE(predniSONE 20 mg oral tablet), 40 mg= 2 tab, PO, Daily propranolol(propranolol 80 mg oral capsule, extended release), See Instructions, 3 refills Allergies NKA Social History Smoking Status Never smoked cigarettes Alcohol - Denies Alcohol Use Exercise - Comments: maintenance at work Nutrition/Health Type of diet:Regular Substance Abuse - Denies Substance Abuse Tobacco Type:Oral Intake (IView) Smoking History Cigarette smoker: Never smoked cigarettes Tobacco Product Use: Current Smokeless tobacco use Family History Hypertension: Mother and Father. Health Status Family Member(s) Immunizations Vaccine Date Status influenza virus vaccine, inactivated 06/18/2024 Given Comments : Atif burgess CMOA influenza virus vaccine, inactivated 06/16/2023 Given Comments : Dr Nuno influenza virus vaccine, inactivated 08/25/2022 Given tetanus/diphtheria/pertuss, acel (Tdap) 08/24/2021 Given SARS-CoV-2 (COVID-19) mRNA-1273 vaccine 02/19/2021 Recorded Comments : 2021-08-24: Historical information-source unspecified influenza virus vaccine, inactivated 05/13/2020 Given influenza virus vaccine, inactivated 06/24/2019 Given influenza virus vaccine, inactivated 06/06/2018 Given influenza virus vaccine, inactivated 06/06/2016 Given Recommendations Health Maintenance Pending(in the next year) Due Adult Social Determinants of Health Screening due11/08/24Unknown Frequency Seasonal COVID 19 Vaccine due11/08/24Unknown Frequency Due In Future Adult Influenza Vaccine not due until02/25/25and every 1year Satisfied(in the past 1 year) Satisfied Adult Influenza Vaccine on06/18/24.Satisfied by SANGEETA Harrington Angela Body Mass Index on06/18/24.Satisfied by SANGEETA Harrington Angela Electronic Signature on File Electronically Reviewed/Signed by: FRANCISCO Robert Author Signature Dt/Tm:11/08/2024 03:20 PM Department of Family Medicine [facility] Patient Care team information Care Team Personnel Name: DO Tran Sameer Position: Resident Member Role: Lifetime Relationship Address: [address] [place] [address] Telecom: [phone] Care Team Related Persons Name: JUMA MAXWELL Insurance Providers Guarantor name: DILIP COLLIER Health Plan Information #: 2 Payer: [employer] PCP ONLY Member Number: [id number] Policy Number: NA Group Number: [id number] Health Plan Information #: 1 Payer: [facility] Member Number: [id number] Policy Number: NA Group Number: [id number]"
[2024-11-13] MEDS: methylPREDNISolone 40 MG in SYRINGE 0 ML IV SCH (06:30)
[2024-11-13] MEDS: lisinopril 10 MG TAB PO ONE (08:56)
--- NOTE | 2024-11-13 11:32 | Electrocardiogram Report ---
Test Reason : Blood Pressure : */* mmHG Vent. Rate : 65 BPM Atrial Rate : 65 BPM P-R Int : 174 ms QRS Dur : 88 ms QT Int : 404 ms P-R-T Axes : 51 19 43 degrees QTcB Int : 420 ms Normal sinus rhythm Normal ECG When compared with ECG of 26-May-2017 05:24, No significant change was found Confirmed by Patel Griffiths ([id number]) on 11/13/2024 11:32:18 AM Referred By: REFERRED SELF Confirmed By: Patel Griffiths
--- NOTE | 2024-11-13 13:59 | Hospitalist Progress Note ---
Date of Service November 13, 2024 Assessment & Plan (1) Influenza A: Plan: Supportive care. Parenteral steroid therapy. (2) Hypoxia: Plan: Continue oxygen per nasal cannula to maintain saturation greater than 90%. Wean off as tolerated. Chest x-ray negative for signs of viral pneumonia (3) Hypertension: Plan: Blood pressure remains elevated despite propranolol which she takes at home. Lisinopril has been added. Plan Hopefully the oxygen can be weaned off quickly and he can be discharged back to his home tomorrow, November 14 Admission and Anticipated Discharge Date Admission Date: November 12, 2024 Subjective Alert and oriented. No distress. is at the bedside. He tested positive for influenza A on admission but there is no evidence of viral pneumonia. He is requiring low-flow oxygen however, currently at 2 L/min. He is on parenteral steroid therapy. Blood pressure remains elevated despite propranolol which he takes at home. Lisinopril has been added. Hopefully he can go home tomorrow, November 14 Review of Systems 2 Review of Systems: Constitutionalno fever or chills ENTno blurred vision, no double vision, no epistaxis, no sore throat Respiratoryno cough, no wheezing, no shortness of breath Cardiacno palpitations, no chest pain, no syncope Micah nausea, vomiting, diarrhea, melena, hematochezia GUno urinary retention, no urinary incontinence, no dysuria, no hematuria Musculoskeletalno joint pain, no muscle tenderness Skinno bruising, no rashes, no pruritus Neurono isolated weakness, no paresthesia, no weakness Psychno depression, no anxiety Physical Exam 2 Physical Exam: General-alert and oriented x3, no fever, no chills HEENT-head atraumatic and normocephalic, pupils equal and reactive to light, extraocular muscles intact Neck-no lymphadenopathy or thyromegaly, trachea midline Chest-clear to auscultation. No rales, wheezing or rhonchi Cardiac-regular rate and rhythm, normal S1 and S2 Abdomen-normal bowel sounds, no hepatosplenomegaly Extremities-no cyanosis, clubbing, or edema Neuro-cranial nerves II through XII intact, motor and sensory function within normal limits, strength symmetrical, no focal deficits Psych-normal affect, normal mood Results & Data Results & Data Vital Signs (Past 12 Hours) Vital Signs Temp Pulse Resp BP Pulse Ox O2 Del Method O2 Flow Rate 11/13/24 12:15 59 L 16 94 Nasal Cannula 2 11/13/24 11:03 158/96 H 11/13/24 09:52 162/79 H 11/13/24 08:55 185/89 H 11/13/24 07:45 Nasal Cannula 2 11/13/24 07:45 36.7 C 54 L 16 178/95 H 94 Nasal Cannula 2 11/13/24 06:55 57 L 16 93 Nasal Cannula 2 Laboratory Results 11/12/24 17:18 11/12/24 17:18 PG Care Time/CCT Total # of Minutes Spent Total Time Spent with Patient: Total time spent is greater than 50% in coordination of care (as documented) at patient's floor/unit and/or counseling patient: Coding Level of Care Code 24238 SUB INP/OBS CARE 3/50MIN Diagnoses Influenza A J10.1 Hypoxia R09.02 Hypertension I10
[2024-11-13] MEDS: ACETAMINOPHEN 325 MG TAB PO PRN (20:15)
[2024-11-13] MEDS: PROPRANOLOL HCL LA 80 MG CAPCR PO SCH (21:06)
[2024-11-14 08:13] VITALS: RESP 18; TEMP 97.7
[2024-11-14 08:46] VITALS: O2SAT 94
[2024-11-14 08:57] VITALS: BP 157/81; PULSE 66
[2024-11-14] MEDS: lisinopril 10 MG TAB PO SCH (08:58)
--- NOTE | 2024-11-14 11:42 | Discharge Summary ---
Discharge Summary Date of Service November 14, 2024 Principal Dx & Hospital Course #1 = Principal Diagnosis (1) Influenza A: Supportive care. Treated while hospitalized with parenteral steroid therapy. This has caused some flushing that will eventually resolve. He is now asymptomatic. No further treatment necessary (2) Hypoxia: Resolved. He is now on room air. He passed his two-step oxygen evaluation prior to discharge. Chest x-ray negative for signs of viral pneumonia (3) Hypertension: Blood pressure much improved after addition of lisinopril. Will continue lisinopril at discharge along with his usual propranolol Plan Home today, November 14. He may return to work on November 18 Admission HPI Per Admitting Provider Praneeth Jimenez is a pleasant 49yo male with history of HTN presenting with influenza infection. Patient's symptoms began 11/08/24 with cough, congestion and fever. He was seen by his PCP in [facility] and was diagnosed with an acute URI. He was given a Prednisone burst and Albuterol inhaler. He reports having fevers through the weekend. Over the last several days he has developed worsening chest congestion, SOB and DORANTES. Patient's reports he was notably out of breath after walking to the shed to get a cooler when the power was out. She also notes that he has audible wheezing and rhonchi when he sleeps. Patient reports some difficulty laying flat due to SOB as well. Otherwise, he has been afebrile for the last 48 hours. He denies chest pain, abdominal pain, nausea, vomiting or diarrhea. He has had poor appetite and decreased PO intake In the ER patient afebrile, elevated blood pressure, mild hypoxia at 89% on room air with improvement with supplemental O2 - now 95% on 2L NC ER Course: Solumedrol 40mg IV NSS x 1L Albuterol 6mL neb Propranolol 80mg ordered Discharge Exam General-alert and oriented x3, no fever, no chills HEENT-head atraumatic and normocephalic, pupils equal and reactive to light, extraocular muscles intact Neck-no lymphadenopathy or thyromegaly, trachea midline Chest-clear to auscultation. No rales, wheezing or rhonchi Cardiac-regular rate and rhythm, normal S1 and S2 Abdomen-normal bowel sounds, no hepatosplenomegaly Extremities-no cyanosis, clubbing, or edema Neuro-cranial nerves II through XII intact, motor and sensory function within normal limits, strength symmetrical, no focal deficits Psych-normal affect, normal mood Discharge Plan Discharge Items Patient Disposition: Home - Self-Care Reason For Visit: INFLUENZA A INFECTION, HYPOXIA Discharge Diagnosis: Influenza A, transient hypoxia, uncontrolled hypertension Activity: Resume your previous activity Non-emergency contact: Primary Care Provider Call non-emergency contact if: your symptoms worsen Follow-up/Referrals: PCP,NO [Primary Care Provider] - Diet: Regular Addtl Attending Provider Instructions: Lisinopril has been added for better blood pressure control. A prescription has been sent to your pharmacy Pending Studies at Discharge: No Stand-Alone Forms: [employer], Smoking Cessation, Work/School Release Medications and DC Order Prescriptions: New lisinopril 10 mg Tablet 10 mg PO QAM Qty: 30 0RF Continued prednisone 20 mg tablet 40 mg PO DAILY Rx Instructions: STARTED 11/08/24 FOR 5 DAYS. propranolol 80 mg capsule,extended release 24hr 80 mg PO PM albuterol sulfate 90 mcg/actuation HFA aerosol inhaler 2 puff INHALATION Q6H PRN (Reason: Shortness Of Breath Or Wheezing) Discharge Orders: Discharge Order (Routine); Ordered 11/14/24 Ordered By: Juanito Manzano Admission Data Admit Date/Time: 11/12/24 19:30 Attending Provider: Juanito Manzano Admit Provider: Marlene Chen Primary Care Provider: PCP,NO Other Providers: Marlene Chen Hospital Stay Data Consultations 11/12/24 18:45 ED Decision to Admit Stat Pending Results Patient Have Any Pending Studies at Discharge: No Discharge Instructions Given to Patient (Per Discharging Provider) Lisinopril has been added for better blood pressure control. A prescription has been sent to your pharmacy Total Time Total Time Spent Total Time Spent (In Minutes): 45 minutes Coding Level of Care Code 73948 INP/OBS DISCH >30 MIN Diagnoses Influenza A J10.1 Hypoxia R09.02 Hypertension I10
== END 2024-11-14 14:09 | disposition home or self-care (01) ==
LOC: ED 17:00 → 3E 17:00 → SUATTDRO 19:30 → 3E 21:31